=== PATIENT | male | born 1960 | race Caucasian/White ===

== ENCOUNTER 2016-05-09 21:19 | Inpatient (IN) | payer MEDICARE, OTHER ==
--- NOTE | ~2016-05-09 | DS ---
Discharge Summary [facility] [address] [place]. [address] NAME: AGUSTO FARAH : 58 STATUS : DIS IN PAT#: [id number] AGE: 56 ADM/REG DATE : 05/09/16 MR#: [id number] REPORT SERV DATE: 05/21/16 DICTATED BY: TEE MACDONALD DATE: 05/20/16 REPORT STATUS : Draft TRANSCRIBED BY: MODL DATE: 05/20/16 ADMISSION DATE: 05/09/2016 DISCHARGE DATE: 05/20/2016 REASON FOR ADMISSION: This is a 56-year-old male who was admitted with back pain, nauseation, and increased shortness of breath, known history of CKD stage 4. Also with a known history of cirrhosis with a recent paracentesis of 1.1 L prior to admission and a known history of CHF with an EF of 30% with recommendation for an AICD placement. HOSPITAL COURSE: Please see admission H and P from Dr. Reji Chapa on 05/10/2016 and interim discharge summary from Dr. Christian Saldivar on 05/17/2016, for full details on admission and hospital stay. DISCHARGE DIAGNOSES: 1. End-stage renal disease, on hemodialysis. 2. Nonalcoholic steatohepatitis cirrhosis. 3. Congestive heart failure with EF of 33%, status post AICD. 4. Diabetes type 2 with A1c of 6.3. 5. Anemia of chronic disease. HOSPITAL COURSE: 1. End-stage renal disease. The patient would ultimately have hemodialysis initiated here at the hospital and has been acquired end-stage renal and had a PermCath inserted on the and has been placed for outpatient dialysis on Tuesday, , Tuesday schedule at [facility]. The patient's last dialysis treatment was yesterday on the and his next will be on 05/22/2016. 2. RENAE cirrhosis. The patient with some noted ascites while here at the hospital with a known history of ascites with recent paracentesis prior to admission. There was some consideration for doing a paracentesis which was eventually ordered today before discharge. He was sent down to Interventional Radiology, but ultrasound revealed less than 1 L of fluid accumulation, not enough to pull, so the patient was sent back up to the floor. This will continue to be monitored. We will give the patient a torsemide 100 mg p.o. daily on his nondialysis days to help maintain this. 3. CHF with EF of 33%. The patient has been recommended by Dr. Esposito to have an AICD, but had been putting it off while he was here at the hospital. Dr. Esposito had the AICD placed on the . The patient's AICD is working properly and had no issues from it since placement. 4. Diabetes type 2. A1c of 6.3. Blood sugars well controlled here at the hospital. No changes to home regimen. DISCHARGE CONDITION: Stable. DISCHARGE MEDICATIONS: 1. Coreg 25 mg p.o. b.i.d. 2. Vitamin B12, 500 mcg p.o. daily. 3. NovoLog sliding scale. Discharge Summary [address] [address] NAME: AGUSTO FARAH : 58 STATUS : DIS IN PAT#: [id number] AGE: 56 ADM/REG DATE : 05/09/16 MR#: [id number] REPORT SERV DATE: 05/21/16 DICTATED BY: TEE MACDONALD DATE: 05/20/16 REPORT STATUS : Draft TRANSCRIBED BY: NATE DATE: 05/20/16 4. Valdez-3 fatty acid 1000 mg p.o. daily. 5. Zantac 150 mg p.o. daily. 6. Flomax 0.4 mg p.o. daily. 7. Demadex 100 mg p.o. on nondialysis days only. 8. Linzess 290 mcg p.o. daily. 9. Prinivil 2.5 mg p.o. daily. 10.Lactulose 10 g p.o. daily. DISCHARGE PLAN: The patient is discharged home with home healthcare. He is still significantly weak, did recommend inpatient rehab. I had a long discussion with the patient about going to rehab, but the patient and his adamantly refused saying they have all the equipment they need at home and she is capable of assisting him along with the help of home health care and PT. Therefore, he will be discharged home with home health care and RN and PT visits as well as follow up with [facility] on Tuesday for his next hemodialysis treatment. He will also follow up with primary care and renal outpatient. CHICO/NATE Tee Macdonald APN / [id number] CC: Estella Tejada M.D. Steven Austin, M.D., [facility] Jorge L eVntura M.D.
--- NOTE | ~2016-05-09 | CN ---
Consultation Report [address] [place]. [address] NAME: AGUSTO BUTT GENE : 58 STATUS : ADM IN PAT#: [id number] AGE: 56 ADM/REG DATE : 05/09/16 MR#: [id number] REPORT SERV DATE: 05/17/16 DICTATED BY: DANIEL BELTRAN DATE: 05/17/16 REPORT STATUS : Draft TRANSCRIBED BY: MODL DATE: 05/17/16 CONSULTATION DATE OF CONSULTATION: 05/17/2016 INDICATION: Device consideration. HISTORY OF PRESENT ILLNESS: Mr. Butt is a 56-year-old man with a long-standing ischemic cardiomyopathy of at least a couple years, who has been admitted for initiation of dialysis essentially. He was supposed to come see me in clinic on Tuesday for device consideration. He had refused an AICD in the past apparently, but is now agree. He is in the hospital now and is initiating dialysis. He has had no other acute problems. No recent myocardial infarction. No recent stenting. He states that he is chronically tired. He has not passed out recently. No palpitations. PAST MEDICAL HISTORY: 1. End-stage renal disease, now on hemodialysis. 2. Longstanding history of coronary artery disease with history of CABG remotely and PA remotely. 3. Congestive heart failure at least since May 2013 when ejection fraction was 33%. 4. Diabetes. 5. Hypertension. 6. History of DVT. 7. Arthritis. 8. Sleep apnea. 9. Peptic ulcer disease. SOCIAL HISTORY: He denies tobacco. FAMILY HISTORY: There is coronary artery disease in the family. HOME MEDICATIONS: 1. Coreg 12.5 mg b.i.d. 2. Insulin. 3. Linzess 290 mcg before breakfast. 4. Zantac 150 mg daily. 5. Flomax 0.4 mg daily. 6. Restoril 15 mg at bedtime. 7. Demadex 100 mg daily. ALLERGIES: HE IS ALLERGIC TO FLAGYL, VANCOMYCIN, HYDROCODONE. REVIEW OF SYSTEMS: A 10-system review was asked and is negative except for noted above in history of present Consultation Report [address] [place]. [address] NAME: AGUSTO BUTT GENE : 58 STATUS : ADM IN PAT#: [id number] AGE: 56 ADM/REG DATE : 05/09/16 MR#: [id number] REPORT SERV DATE: 05/17/16 DICTATED BY: DANIEL BELTRAN DATE: 05/17/16 REPORT STATUS : Draft TRANSCRIBED BY: NATE DATE: 05/17/16 illness. He has chronic fatigue. Some chronic shortness of breath. Weakness diffusely. No recent cold or flu symptoms. No recent significant chest pain. He has not passed out. He bruises. PHYSICAL EXAMINATION: VITAL SIGNS: He is afebrile. Temperature 88, systolic blood pressure 102. GENERAL: Mr. Butt is a chronically ill-appearing man, in no acute distress. He is alert and oriented to person and place. HEENT: Negative. He is not dehydrated. NECK: There is no obvious JVD. LUNGS: Have rhonchi bilaterally on an anterior exam. HEART: Tones are regular. A little ectopy. There is a murmur. ABDOMEN: Negative. He has good bowel sounds. EXTREMITIES: Show a little bit of edema. SKIN: Shows diffuse bruising. NEUROLOGIC: He moves all four extremities equally. He has normal speech. ELECTROCARDIOGRAM: This is from yesterday at about 2 in the morning and it shows atrial fibrillation with a rapid response around 110 beats per minute. Low voltage. The QRS axis appears to be normal. He has poor R-wave progression. There are diffuse ST changes. LABORATORY DATA: Sodium 141, potassium 3.9, BUN 90, creatinine 4. Platelet count 157, white blood cell count 6, hematocrit 30. IMPRESSION: Longstanding ischemic cardiomyopathy with history of coronary artery bypass graft and myocardial infarction. PLAN: I spoke with Mr. Butt regarding defibrillator placement. He seems to be an appropriate candidate. He is [place] [employer] II or III symptoms. He has been on maximally tolerated doses of GDMT. QRS duration is less than 120 milliseconds. This would be a dual-chamber device. Today, we have discussed indications, alternatives, all procedural details, and an extensive list of potential complications and risks. He will think about this overnight and let me know tomorrow. The options are to have this done while he is here in the next couple days or he is welcome to go home and have it done as an outpatient shortly. He wants to wait a long time, I would recommend a LifeVest. Thank you very much for the consultation. MARGO/NATE Daniel Beltran M.D. Consultation Report [place] [address] [address]. [address] NAME: AGUSTO BUTT : 58 STATUS : ADM IN PAT#: [id number] AGE: 56 ADM/REG DATE : 05/09/16 MR#: [id number] REPORT SERV DATE: 05/17/16 DICTATED BY: DANIEL BELTRAN DATE: 05/17/16 REPORT STATUS : Draft TRANSCRIBED BY: MODL DATE: 05/17/16 / [id number] CC: MD Dasha Heck M.D. Steven Austin, M.D., [facility]
--- NOTE | ~2016-05-09 | IDS ---
Interim Discharge Summary [facility] [address] [place]. [address] NAME: AGUSTO FARAH : 58 STATUS : ADM IN PAT#: [id number] AGE: 56 ADM/REG DATE : 05/09/16 MR#: [id number] REPORT SERV DATE: 05/17/16 DICTATED BY: YASMIN SALDIVAR DATE: 05/17/16 REPORT STATUS : Draft TRANSCRIBED BY: MODL DATE: 05/17/16 ADMISSION DATE: 05/09/2016 DISCHARGE DATE: REASON FOR ADMISSION: ALEJANDRA on CKD stage 4. HISTORY OF PRESENT ILLNESS: Please refer to Dr. Chapa's history and physical dated 05/09/2016 for complete details regarding the patient's admission. The patient has been at the Hospitalist Service for management of his ALEJANDRA on CKD stage 4. HOSPITAL COURSE: Several issues were addressed: 1. ALEJANDRA on CKD stage 4, now deemed end-stage renal disease, on hemodialysis. The patient was entered with an acute kidney injury and Nephrology was consulted. The patient continued to have some nausea, weakness, and increasing lower extremity edema. His creatinine had continued to rise. It was not sure if his nausea and vomiting were related to uremic syndrome as well as the BUN did get over 100, it was felt that the patient was not clinically improving and therefore initiating dialysis was the best plan of action. Dr. Lynn had initiated the patient on dialysis. He consulted Dr. Dyer for placement of a right internal jugular vein Perma-Cath, which was done on 05/13/2016. The patient the following day, had a short run of dialysis which he tolerated it okay, then another short run the following day. He is planning to run a full course of dialysis on Tuesday, and his creatinine and BUN continued to go down. His lower extremity edema is improving. The patient has been accepted to the [facility] for which his niece is the director at that facility, but we are currently awaiting a date and time for him to initiate dialysis at that outpatient center. Dr. Foster will follow as an outpatient. 2. Atrial fibrillation with RVR. The patient's heart rate has been well controlled up until approximately the night of 05/15/2016, where he went in to atrial fibrillation with RVR. He was started on a diltiazem drip with good heart rate control. His heart rate got below 100. Given his low ejection fraction, I have decided to discontinue his diltiazem drip and increases carvedilol, the dose went from 12.5 mg to 25 mg twice a day. He is tolerating the dose and so far his heart rate is between 90 and 100. Given his elevated score, he will need to be anticoagulated, however, given his cirrhosis, the last INR was 1.9 on 05/13/2016, without any anticoagulation. We will repeat some coags to see where we are and if he is not at goal two to three, we may need to consider starting him on Coumadin. However, this also we will need to address whether or not the patient will have an ICD placed on when to initiate Coumadin therapy if is needed to anticoagulate him. 3. Hinton/cirrhosis, the patient follows Dr. Ambrosio as an outpatient. His MELD has gone up to 25 on admission. We added lactulose and have been titrating lactulose levels down. He has had no sign of encephalopathy, secondary to his cirrhosis. Overall, the patient has a poor overall prognosis. 4. Chronic systolic heart failure with an EF of 20% to 30%, secondary to ischemic cardiomyopathy followed by Dr. Esposito. He has been compensated. He has been having a very difficult time with fluid balance given his chronic kidney disease, his heart failure, and cirrhosis, however, dialysis is managing that. As an outpatient Interim Discharge Summary [address] [address] NAME: AGUSTO FARAH : 58 STATUS : ADM IN [facility]#: [id number] AGE: 56 ADM/REG DATE : 05/09/16 MR#: [id number] REPORT SERV DATE: 05/17/16 DICTATED BY: YASMIN SALDIVAR DATE: 05/17/16 REPORT STATUS : Draft TRANSCRIBED BY: MODNoelle DATE: 05/17/16 Vaibhav used to schedule a paracentesis twice a week to be done by Interventional Radiology. He actually went down to Intervention Radiology to have paracentesis, but they discover that he did not have significant enough fluid and has not had a paracentesis in-house, it has been over two weeks since he has had one done. 5. Type 2 diabetes. It has been pretty stable. 6. BPH, been stable on Flomax. DISPOSITION: Eventually, discharge the patient home once outpatient HD has been completely arranged which should be done shortly, however, it is unclear to me as to the timing of an ICD placed per Dr. Esposito. Apparently, the patient has an upcoming appointment with Dr. Beltran as an outpatient to discuss an AICD placement, however, given the patient's overall multi-system organ dysfunction, I really do not believe that placing an ICD is going to increase this patient's quality of life and increase his mortality. However, that will be up to Dr. Esposito to decide, he was more familiar with the patient. The patient remains a full code. Hopefully, discharge to home sometime in the next day or two pending ICD placement. He is ambulating with his , I do not anticipate any further needs. MUNA/CALLIL Yasmin Saldivar MD / [id number] CC: MD Dasha Heck M.D. Dandre Foster M.D. Frank Esposito M.D., [facility]
--- NOTE | ~2016-05-09 | HP ---
History And Physical [address] [address] NAME: AGUSTO FARAH : 58 STATUS : ADM IN PAT#: [id number] AGE: 56 ADM/REG DATE : 05/09/16 MR#: [id number] REPORT SERV DATE: 05/10/16 DICTATED BY: ELIDIA BARRETT DATE: 05/09/16 REPORT STATUS : Draft TRANSCRIBED BY: MODL DATE: 05/09/16 DATE OF ADMISSION: 05/09/2016 CHIEF COMPLAINT: Back pain, nauseation, and increased shortness of breathing progressively. HISTORY OF PRESENT ILLNESS: The patient is a 56-year-old male with past medical history of diabetes, CHF followed by Dr. Esposito, CKD stage [address] Foster secondary to diabetes and IgA per records, and ascites followed by Dr. Treva Ambrosio, who has every other week paracentesis but family reports no history of HINTON cirrhosis, although records conflicting who presents after having abdominal and back pain that has been progressive continuous, constant oefmxfim-rx-[id number] in severity, that has been sharp radiating to back associated with nausea, shortness of breath. No vomiting. No fever or acute chills at this time. No swelling or redness but has had increased distention in the belly. Symptoms are worsened with palpation and relieved by only Dilaudid that was given in the emergency room. REVIEW OF SYSTEMS: A 10-point review of systems negative except for that noted in the HPI. PAST MEDICAL HISTORY: Coronary artery disease with CABG in 2000, CKD stage [address] 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 Esposito peripheral arterial disease, multiple stents placed by Dr. Beard, recent fistula placement with reversal after limb ischemia, is reported to have Hinton cirrhosis per charts but family denies this diagnosis. Obstructive sleep apnea on CPAP. Pulmonary hypertension with right ventricular dysfunction, hypertension, diabetes, cholelithiasis, peptic ulcer disease, diverticulosis, urinary retention followed by Dr. Vargas cellulitis. SURGICAL HISTORY: CABG in 2000, partial foot amputation, peripheral arterial disease, osteomyelitis, urethrotomy, pseudoaneurysm repair right forearm bone graft, congenital ear problems with multiple surgeries, vocal cord polyps. ALLERGIES: TO FLAGYL, ERYTHROMYCIN, AND VANCOMYCIN, ADHESIVE TAPE. SOCIAL HISTORY: , accompanied with from [place]. . No tobacco abuse, no alcohol use. FAMILY HISTORY: Diabetes, heart disease, stroke. PHYSICAL EXAMINATION: VITAL SIGNS: The patient's blood pressure 152/56, temperature 97.4, pulse 71, respirations 20, O2 sats 96%. GENERAL: Elderly frail but obese. EYES: No scleral icterus. ENT: Nares patent. Tongue midline. No JVD. RESPIRATORY: Good air flow. No wheezes or rales. History And Physical [address] [address] NAME: AGUSTO FARAH : 58 STATUS : ADM IN [facility]#: [id number] AGE: 56 ADM/REG DATE : 05/09/16 MR#: [id number] REPORT SERV DATE: 05/10/16 DICTATED BY: ELIDIA BARRETT DATE: 05/09/16 REPORT STATUS : Draft TRANSCRIBED BY: NATE DATE: 05/09/16 CV: Regular rate. No rubs. Does have bilateral edema. GI: Soft, but distended, positive fluid wave with ascites. Mild pain in posterior. No alycia CVA. : Deferred. MUSCULOSKELETAL: Moves all extremities x4 with bilateral lower extremity edema. Reverse shunt fistula. SKIN: Appears mildly jaundiced. LYMPH: No cervical or supraclavicular lymphadenopathy but does have pedal edema. HEME: No bleeding or bruising. NEURO: Alert and oriented. No asterixis. Moves all extremities. Sensation is still grossly intact. PSYCH: Appropriate mood and affect. After pain medications, calm and pleasant. LABS: Today urinalysis; large leukocyte esterase with greater than 182 white blood cells. CMP; sodium 139, potassium 4.6, chloride 100, bicarb 26, BUN creatinine 107 and 4.7, previously was 3.56 on 11/26/2014. Glucose 97, calcium 7.9, alkaline phosphatase 194, total bilirubin 1.1. LFTs within normal limits. Lipase 218. CBC: WBC count 4.7, H and H 10 and 33.6 previously 38 in April of 2015, MCV 72.4, platelets 177. EKG; none currently on chart. ASSESSMENT AND PLAN: 1. Acute kidney injury. 2. Urinary tract infection. 3. Congestive heart failure. 4. Microcytic anemia. 5. Ascites. 6. Diabetes type 2. PLAN: 1. For ALEJANDRA, does have CKD, unclear this is ESRD. Has had CKD secondary to diabetes and IgA. Fistula was placed but required reversal due to ischemia of limb. The patient has been on Demadex and did have recent 1.1 L paracentesis. We will obtain CT with the patient's back pain, concern for pyelo. We will start on an IV antibiotics with Rocephin for UTI and evaluate further with Nephrology. 2. Urinary tract infection. Rocephin. The patient has clinical symptoms of symptomatic UTI, unclear if has progression up to pyelonephritis. We will obtain imaging to further delineate and obtain cultures. 3. Congestive heart failure history. EF 30%. Followed by Dr. Esposito. No MONSERRAT inhibitors currently secondary to ALEJANDRA. Monitor fluid balance. 4. Microcytic anemia. Check iron studies with CKD history follows with Dr. Ruff. Family requesting Dr. Ruff consult with anemia and ascites. 5. Ascites, recent paracentesis, typically should have paracentesis this week as he does have paracentesis every 2 weeks. Family again declines. The patient has history of HINTON cirrhosis, as noted in prior dictations. 6. Diabetes type 2. Sliding scale insulin. Check A1c. History And Physical [address] [address] NAME: AGUSTO FARAH : 58 STATUS : ADM IN [facility]#: [id number] AGE: 56 ADM/REG DATE : 05/09/16 MR#: [id number] REPORT SERV DATE: 05/10/16 DICTATED BY: ELIDIA BARRETT DATE: 05/09/16 REPORT STATUS : Draft TRANSCRIBED BY: MODL DATE: 05/09/16 DISPOSITION: Pending findings from above and Nephrology or GI consultation. DDN/MODL Elidia Barrett MD / [id number] CC: Estella Powers Boeck, M.D.
--- NOTE | ~2016-05-09 | CN ---
Consultation Report [facility] [address] [place]. [address] NAME: AGUSTO BUTT : 58 STATUS : ADM IN PAT#: [id number] AGE: 56 ADM/REG DATE : 05/09/16 MR#: [id number] REPORT SERV DATE: 05/10/16 DICTATED BY: HOLLY REES DATE: 05/10/16 REPORT STATUS : Draft TRANSCRIBED BY: MODL DATE: 05/10/16 GI CONSULTATION DATE OF CONSULTATION: 05/10/2016 REASON FOR CONSULTATION: Cirrhosis and ascites. HISTORY OF PRESENT ILLNESS: Mr. Butt is a 56-year-old white male who had been followed in our GI Clinic for his history of RENAE cirrhosis, which has been complicated by ascites. He has not been seen in our clinic since 04/2014, at which time, he was both on Lasix and Aldactone. 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 He has history of CHF diagnosed by Dr. Esposito with an ejection fraction of less than 30%; coronary artery disease, status post CABG 2000. PAST MEDICAL HISTORY: Chronic kidney disease, stage 4; RENAE cirrhosis; peripheral arterial disease, status post multiple stents; obstructive sleep apnea, on CPAP; hypertension. PAST SURGICAL HISTORY: Partial foot amputation; ear surgeries; pseudoaneurysm, right forearm. SOCIAL HISTORY: No smoking, alcohol, or drug use. FAMILY HISTORY: Diabetes, stroke, coronary artery disease. MEDICATIONS: Reviewed. ALLERGIES: REVIEWED. PHYSICAL EXAMINATION: VITAL SIGNS: Patient is afebrile. His vital signs are stable. GENERAL: The patient is a chronically ill-appearing gentleman, who appears gaunt and chronically ill. HEENT: Atraumatic. Bitemporal wasting. CARDIAC: S1, S2. CHEST: Decreased breath sounds bilaterally. ABDOMEN: Distended and firm, but not tense with fluid wave easily elicited. LABORATORY DATA: Show WBC 4.3, hemoglobin 9.9, hematocrit 33.3, platelets 168. INR is 1.5. Sodium 137, potassium 4.8, chloride 102, bicarb 20, BUN 107, creatinine 4.5, glucose 175, bilirubin 4.1, AST 17, ALT 28, alkaline phosphatase was 68. MELD score previously calculated to be 19, but this appears to be driven mostly by his creatinine, but his INR also is elevated bringing up his MELD score, which on this admission today is calculated to be 25, which is a significant increase from his score from two years ago. Consultation Report [place] [id number] [place]. [address] NAME: AGUSTO BUTT : 58 STATUS : ADM IN PAT#: [id number] AGE: 56 ADM/REG DATE : 05/09/16 MR#: [id number] REPORT SERV DATE: 05/10/16 DICTATED BY: HOLLY REES DATE: 05/10/16 REPORT STATUS : Draft TRANSCRIBED BY: MODNoelle DATE: 05/10/16 He is a very difficult patient with regard to his fluid status given his history of CHF and chronic kidney disease, stage 4, with underlying RENAE cirrhosis. No evidence of SBP or any overt GI bleeding at this time. I have discussed the gravity of the patient's chronic health care and the difficulty with maintaining optimal hemodynamic status with him as well as with his . We will follow up on Cardiology and Nephrology's recommendations. He does need diuresis, however, given his other comorbidities, this remains a challenge and will continue to follow with you. ARCHANA/NATE Holly Rees MD / [id number] CC: Estella Powers M.D.
--- NOTE | ~2016-05-09 | CN ---
Consultation Report [facility] [address] [place]. [address] NAME: AGUSTO BUTT GENE : 58 STATUS : ADM IN PAT#: [id number] AGE: 56 ADM/REG DATE : 05/09/16 MR#: [id number] REPORT SERV DATE: 05/12/16 DICTATED BY: FRANK NUNN DATE: 05/12/16 REPORT STATUS : Draft TRANSCRIBED BY: MODL DATE: 05/12/16 CARDIOVASCULAR CONSULTATION DATE OF CONSULTATION: 05/11/2016 REFERRING PHYSICIAN: Christian Saldivar M.D. HISTORY OF PRESENT ILLNESS: Mr. Agusto Butt is a 56-year-old gentleman who I followed for congestive heart failure, edema, and recurrent ascites, felt secondary to the comorbidities of CHF, RENAE, and renal insufficiency. He requires paracentesis once or twice monthly secondary to the recurrent ascites. He was admitted on 05/10/2016, complaining of back pain, nausea, and increasing shortness of breath. He reports that he had been somewhat constipated as well. He was found to have acute renal insufficiency, as well as a urinary tract infection. REVIEW OF SYSTEMS: The patient reports stable orthopnea. He denies any paroxysmal nocturnal dyspnea. He denies any chest pain. He denies any syncope or presyncope. PAST MEDICAL HISTORY: Noted above, significant for heart failure with reduced ejection fraction. He is currently undergoing an evaluation by Dr. Wolf Beltran for AICD. He has history of coronary artery disease, diabetes mellitus type 2, hypertension, peripheral vascular disease, and DVT. He is status post remote bypass. His last known ejection fraction is 20-25%. MEDICATIONS: See list. FAMILY HISTORY: Positive for coronary artery disease. SOCIAL HISTORY: The patient has never smoked or used ethanol. ALLERGIES: THE PATIENT REPORTS ALLERGIES TO ERYTHROMYCIN, FLAGYL, AND VANCOMYCIN. PHYSICAL EXAMINATION: VITAL SIGNS: Blood pressure 129/70, pulse 66, respiratory rate 16. The patient is afebrile. GENERAL: This is a well-developed, well-nourished, chronically ill-appearing 56-year-old white male, alert, and oriented x3, in no acute distress. NECK: No jugular venous distention, hepatojugular reflux, or carotid bruits. CARDIOVASCULAR: Normal rate with regular rhythm. Positive S4 gallop. LUNGS: Clear to auscultation. However, breath sounds are diminished in the bases and excursion is fair. ABDOMINAL: Reveals ascites. EXTREMITY: Reveals 1 to 2+ pitting edema with chronic venous stasis changes noted. Consultation Report [facility] [id number] [place]. [address] NAME: AGUSTO BUTT : 58 STATUS : ADM IN PAT#: [id number] AGE: 56 ADM/REG DATE : 05/09/16 MR#: [id number] REPORT SERV DATE: 05/12/16 DICTATED BY: FRANK NUNN DATE: 05/12/16 REPORT STATUS : Draft TRANSCRIBED BY: MODL DATE: 05/12/16 Telemetry shows sinus rhythm. LABORATORY DATA: Significant for hematocrit of 33.2. BUN and creatinine are elevated at 124 and 4.9. ASSESSMENT: 1. Acute kidney injury on chronic kidney disease. 2. Urinary tract infection. 3. Heart failure with reduced ejection fraction. 4. Nonalcoholic steatohepatitis. 5. Diabetes mellitus type 2. 6. Ascites. 7. Anemia. 8. History of coronary artery disease. PLAN: 1. Agree with current treatment. He will likely, at some point, need hemodialysis. This would also help with his chronic ascites. 2. Agree with current treatment. I appreciate your consultation. We will follow this patient with you. PAIGE Frank Nunn M.D., [facility] / [id number] CC: MD Dasha Heck M.D.
--- NOTE | ~2016-05-09 | OP ---
Record Of Operation [facility] [address] [place]. [address] NAME: AGUSTO FARAH : 58 STATUS : ADM IN PAT#: [id number] AGE: 56 ADM/REG DATE : 05/09/16 MR#: [id number] REPORT SERV DATE: 05/13/16 DICTATED BY: WASHINGTON DYER JR. DATE: 05/13/16 REPORT STATUS : Draft TRANSCRIBED BY: MODL DATE: 05/13/16 DATE OF PROCEDURE: 05/13/2016 PREOPERATIVE DIAGNOSIS: End-stage renal disease. POSTOPERATIVE DIAGNOSIS: End-stage renal disease. OPERATION: Insertion of right internal jugular vein PermCath catheter. SURGEON: Washington Dyer M.D. HISTORY: This is a 56-year-old, white male, who has not started dialysis yet. He is in need of urgent dialysis. PROCEDURE IN DETAIL: The patient was placed on the operating table. The right side of the neck was prepped and draped in the usual sterile manner. A long needle was used to find the right internal jugular vein. A wire was placed down the right side of the heart. This was confirmed with fluoroscopy. PermCath catheter was brought through the stab wound below the right clavicle, up into the small neck incision, and down into the Tear-Away introducer. The catheter was then irrigated with heparinized saline and sutured into place. The patient tolerated the procedure well. Taken back to recovery room in fair condition. There were no intraoperative complications. ESTIMATED BLOOD LOSS: Negligible. DF/MODL Washington Dyer Jr., M.D. / [id number] CC: MD Dasha Heck M.D.
--- NOTE | ~2016-05-09 | CN ---
Consultation Report [facility] [address] [place]. [address] NAME: AGUSTO BUTT : 58 STATUS : ADM IN PAT#: [id number] AGE: 56 ADM/REG DATE : 05/09/16 MR#: [id number] REPORT SERV DATE: 05/10/16 DICTATED BY: DATE: REPORT STATUS : Draft TRANSCRIBED BY: MODL DATE: 05/10/16 CONSULTATION DATE OF CONSULTATION: REASON FOR CONSULTATION: Acute kidney injury. HISTORY OF PRESENT ILLNESS: Mr. Butt is a 56-year-old white male with CKD stage 4 in the setting of diabetic nephropathy. He also had some findings consistent with IgA on a biopsy that was performed in the past. He has ischemic cardiomyopathy with previous EFs of 20 to 25, refused AICD, last recording I see is an EF of 30. He presented to the hospital with abdominal pain, nausea, vomiting, feeling poorly and was found to have findings consistent with urinary tract infection. Creatinine up to 4.7, today it is down to 4.5. He states he is feeling somewhat better. He has recurrent ascites, which sounds to be related to his congestion, as he has had full workup by Dr. Ambrosio and been told he does not have cirrhosis. He is experiencing right now no shortness of breath, but he is having some oxygen desaturations. No difficulty with urination. PAST MEDICAL HISTORY: CKD secondary to diabetes, ischemic cardiomyopathy, peripheral artery disease, multiple stents, left foot partial amputation, osteomyelitis, obstructive sleep apnea, hepatomegaly, pulmonary hypertension, diabetes, peptic ulcer disease, gastritis, gastric telangiectasias, diverticulitis, urinary retention, cellulitis. FAMILY MEDICAL HISTORY: Positive for end-stage renal disease in niece. SOCIAL HISTORY: He is . 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 No tobacco, alcohol, or illicit drug use. ALLERGIES: FLAGYL, ERYTHROMYCIN, AND VANCOMYCIN. MEDICATIONS: At the time of consultation, Coreg, Rocephin, famotidine, heparin, insulin, sodium bicarbonate, tamsulosin, and temazepam. His Demadex is being held. REVIEW OF SYSTEMS: A 12-point review of systems was obtained and negative with the exception of that in the HPI. PHYSICAL EXAMINATION: VITAL SIGNS: Temperature 97.1, blood pressure 120/66, pulse 62, respiratory rate 18, O2 saturation is 98%. GENERAL: This is a pleasant, cooperative, chronically ill-appearing white male. He is awake, alert and oriented x3, in no acute distress. Answers questions appropriately. HEENT: Normocephalic and atraumatic. Conjunctivae clear. Sclerae anicteric. Pupils are equal and round. Oral mucosa is moist. Consultation Report [facility] [address] [address] NAME: AGUSTO BUTT : 58 STATUS : ADM IN PAT#: [id number] AGE: 56 ADM/REG DATE : 05/09/16 MR#: [id number] REPORT SERV DATE: 05/10/16 DICTATED BY: DATE: REPORT STATUS : Draft TRANSCRIBED BY: MODL DATE: 05/10/16 NECK: Supple. Carotids are brisk. Neck veins flat. No lymphadenopathy. LUNGS: Respirations are even and unlabored. Breath sounds clear to auscultation. HEART: Rate is regular. No murmur, rub, or gallop. ABDOMEN: Distended with ascites and soft. He has no CVA tenderness. EXTREMITIES: With 2+ pitting edema. SKIN: Warm, dry, and intact. No unusual rashes or skin lesions. NEURO: No focal deficits. Generalized weakness positive. Mood and affect, pleasant and appropriate. PERTINENT LABORATORIES AND X-RAYS: His urinalysis had rare bacteria, but had white blood cell clumps in it and 14 red blood cells per high-power field and nitrite negative. WBCs 4, H and H 9 and 29, platelets 168,000. Lactate 0.8. Sodium 137, potassium 4.8, chloride 102, CO2 of 20, BUN of 107, creatinine of 4.5, calcium of 8, albumin of 3, bilirubin 1.4, alkaline phosphatase 168, SGOT of 17, SGPT of 28. Ferritin of 44 with serum iron of 25. TSH 2.7. Ammonia level 53. A1c of 6.3. IMPRESSION: 1. Acute kidney injury on chronic kidney disease stage 4. 2. History of steal syndrome to left AV fistula, status post ligation. 3. Urinary tract infection. 4. Nausea and vomiting. 5. Ischemic cardiomyopathy with EF of 30. 6. Hepatomegaly, no cirrhosis per Dr. Ambrosio, requires q.2 weeks' paracentesis for recurrent ascites. PLAN: Agree with holding Demadex and increasing p.o. intake and if he needs it, some cautious IV hydration would be okay, but given his low EF, I am reluctant to do that at this point as his nausea is better. We will follow I's and O's and labs. No indication for renal replacement therapy today. However, we will follow labs over the next 24-48 hours. If no improvement, I will need to consider initiation of dialysis and have discussed this with family. Further orders and recommendations pending clinical course. Thank you for the consult. We will follow along with you. FRED/NATE JIN Urena / [id number] CC: April Cardona M.D. Consultation Report [address] [address] NAME: AGUSTO BUTT GENE : 58 STATUS : ADM IN PAT#: [id number] AGE: 56 ADM/REG DATE : 05/09/16 MR#: [id number] REPORT SERV DATE: 05/10/16 DICTATED BY: DATE: REPORT STATUS : Draft TRANSCRIBED BY: NATE DATE: 05/10/16 Dasha Chaney M.D.
[2016-05-09 19:24] LABS: ASCORBIC ACID (UR NOT ORDER) NEG (NEG); BILIRUBIN, URINE NEGATIVE (NEG); ER URINALYSIS TAT 0 Hrs 08 Mins; KETONE, URINE NEGATIVE (NEG); LEUKOCYTE ESTERASE(NOT OR LARGE (NEG); NITRITE (URINE) NEG (NEG); WBC (NOT ORDERED) (RFLEX) > 182 (0-5)
[2016-05-09 19:48] LABS: BASOPHILS 0.6 %; BASOPHILS ABSOLUTE 0.03 10/3/uL (0.0-0.16); EOSINOPHILS 7.6 %; EOSINOPHILS ABSOLUTE 0.36 10/3/uL (0.0-0.53); IMMATURE GRANULOCYTES 0.2 %; IMMATURE GRANULOCYTES ABSOLUTE 0.01 10/3/uL (0.0-0.11); LYMPHOCYTES 16.8 %; LYMPHOCYTES ABSOLUTE 0.79 10/3/uL (0.67-4.30); MEAN CORPUS HGB CONC 29.8 g/dL (32.0-36.0); MEAN PLATELET VOLUME 8.6 fL (9.2-13.0); MONOCYTES 3.4 %; MONOCYTES ABSOLUTE 0.16 10/3/uL (0.21-1.20); NEUTROPHILS 71.4 %; NEUTROPHILS ABSOLUTE 3.36 10/3/uL (2.02-8.40); PLATELET COUNT 177 10/3/uL (150-400); RBC DISTRIBUTION WIDTH 20.5 % (12.0-16.0); RED CELL COUNT 4.64 10/6/uL (4.7-6.1); WHITE BLOOD CELLS 4.7 10/3/uL (4.5-10.5)
[2016-05-09 19:54] LABS: HEMATOCRIT 33.6 % (40.0-51.0); MANUAL DIFF NO %; MEAN CORPUSCULAR HEMOGLOB 21.6 pg (26.0-34.0); MEAN CORPUSCULAR VOLUME 72.4 fL (80-100)
[2016-05-09 20:03] LABS: ALBUMIN 3.2 G/DL (3.5-5.0); CALCIUM, SERUM 7.9 MG/DL (8.5-10.4); POTASSIUM, SERUM 4.6 MMOL/L (3.5-5.3); SGOT(AST) 18 U/L (5-40); SGPT(ALT) 31 U/L (5-65); SODIUM, SERUM 139 MMOL/L (135-148); TOTAL BILIRUBIN 1.1 MG/DL (0-1.2)
[2016-05-09 20:04] LABS: A/G RATIO 0.7 (0.7-1.9); ALKALINE PHOSPHATASE 194 U/L (45-117); BUN (BLOOD UREA NITROGEN) 107 MG/DL (6-23); CHLORIDE, SERUM 100 MMOL/L (96-112); CO2 (CARBON DIOXIDE) 26 MMOL/L (24-34); GFR AFRICAN AMERICAN 15 ML/MIN (>=60); GFR NON AFRICAN AMERICAN 13 ML/MIN (>=60); GLOBULIN 4.8 G/DL (2.5-4.1); GLUCOSE, SERUM 97 MG/DL (60-99)
[2016-05-09 20:18] LABS: ANISOCYTOSIS 1+ (5-10/OIF) (0-5/OIF); MICROCYTES 1+ (5-10/OIF) (0-5/OIF)
[2016-05-09 20:19] LABS: PLATELET ESTIMATE ADQ (ADEQUATE)
[~2016-05-09 21:19] MED LIST: ADVIL PO; ASAB PO; B12250T PO; CINNAMON PO; CINNAMONPO PO; CIP5 PO; COQ10100 MG OR; COREG12 PO; COREG6 PO; CRESTOR5 MG PO; DEMA100 PO; EZFE 200200 MG PO; FERROUS SULF325 M1 PO; FISH OIL PO; FISH OIL300 MG PO; FISH-EPA1000 MG PO; FLOMAX4 PO; FOLIC ACID PO; GARACR15 TOP; HUMALOG SC; L40 PO; L80 PO; LAN25 PO; LANTUS SC; LINZESS 145 M145 MCG PO; LORT7 PO; LOTE20 PO; LOVENOX SC; MEVACOR PO; MIRALAXPKT PO; MULTIPLE VIT PO; MULTIVIT/MIN PO; MULTIVITAMIN PO; NEUR300 PO; NORCO1 TA2 PO; NORCO1 TAB PO; NOVOLOG SC; NOVOPEN SC; PLAVIX PO; PROTONIX PO; RAPAFLO8 MG PO; REST15 PO; ROCALTROL0.25 MCG OR; ROCALTROL0.5 MCG OR; SEPTRA DS1 TAB PO; SODBICAR10 PO; SPIRO25 PO; SPIRO50 PO; TRIPLE OMEGA PO; TUMSROLL PO; VITAMIN A TOP; VITAMIN D PO; VITC500 PO; Z-PAK PO; ZANTAC 150 PO; ZAROX2.5B PO; [UNRECOGNIZED DRUG - OTHER] TOP
[2016-05-09] MEDS ORDERED: B12250T PO (21:52)
[2016-05-09] MEDS ORDERED: COREG25 PO (21:52)
[2016-05-09] MEDS ORDERED: FISH-EPA1000 MG PO (21:53)
[2016-05-09] MEDS ORDERED: FLOMAX4 PO (21:53)
[2016-05-09] MEDS ORDERED: NOVOLOG SC (21:53)
[2016-05-09] MEDS ORDERED: SODBICAR10 PO (21:53)
[2016-05-09] MEDS ORDERED: ZANTAC 150 PO (21:53)
[2016-05-09] MEDS ORDERED: DEMA100 PO (21:54)
[2016-05-09] MEDS ORDERED: REST15 PO (21:54)
[2016-05-09] MEDS ORDERED: LINZESS 290 M290 MCG PO (21:54)
[2016-05-10 07:16] LABS: BASOPHILS 0.2 %; BASOPHILS ABSOLUTE 0.01 10/3/uL (0.0-0.16); EOSINOPHILS 0.2 %; EOSINOPHILS ABSOLUTE 0.01 10/3/uL (0.0-0.53); HEMATOCRIT 33.3 % (40.0-51.0); HEMOGLOBIN 9.9 g/dL (13.6-17.8); IMMATURE GRANULOCYTES 0.7 %; IMMATURE GRANULOCYTES ABSOLUTE 0.03 10/3/uL (0.0-0.11); LYMPHOCYTES 6.3 %; LYMPHOCYTES ABSOLUTE 0.27 10/3/uL (0.67-4.30); MEAN CORPUS HGB CONC 29.7 g/dL (32.0-36.0); MEAN CORPUSCULAR HEMOGLOB 21.6 pg (26.0-34.0); MEAN CORPUSCULAR VOLUME 72.5 fL (80-100); MEAN PLATELET VOLUME 8.9 fL (9.2-13.0); MONOCYTES 2.1 %; MONOCYTES ABSOLUTE 0.09 10/3/uL (0.21-1.20); NEUTROPHILS 90.5 %; PLATELET COUNT 168 10/3/uL (150-400); RBC DISTRIBUTION WIDTH 20.7 % (12.0-16.0); RED CELL COUNT 4.59 10/6/uL (4.7-6.1); WHITE BLOOD CELLS 4.3 10/3/uL (4.5-10.5)
[2016-05-10 07:18] LABS: MANUAL DIFF NO %
[2016-05-10 07:36] LABS: ANISOCYTOSIS 1+ (5-10/OIF) (0-5/OIF); ELLIPTOCYTES 1+ (3-10/OIF) (0-2/OIF); PLATELET ESTIMATE ADQ (ADEQUATE); TARGET CELLS OCC (1-2/OIF) (0-1/OIF)
[2016-05-10 07:40] LABS: A/G RATIO 0.6 (0.7-1.9); CHLORIDE, SERUM 102 MMOL/L (96-112); CREATININE 4.51 MG/DL (0.70-1.30); FERRITIN 44 NG/ML (26-388); GFR AFRICAN AMERICAN 16 ML/MIN (>=60); GFR NON AFRICAN AMERICAN 13 ML/MIN (>=60); GLOBULIN 4.7 G/DL (2.5-4.1); IRON BINDING CAPACITY 321 MCG/DL (250-450); IRON, SERUM 25 MCG/DL (35-150); POTASSIUM, SERUM 4.8 MMOL/L (3.5-5.3); SGOT(AST) 17 U/L (5-40); SGPT(ALT) 28 U/L (5-65); SODIUM, SERUM 137 MMOL/L (135-148); TOTAL BILIRUBIN 1.4 MG/DL (0-1.2); TOTAL PROTEIN 7.7 G/DL (6.0-8.5)
[2016-05-10 07:43] LABS: ALKALINE PHOSPHATASE 168 U/L (45-117); BUN (BLOOD UREA NITROGEN) 107 MG/DL (6-23); CO2 (CARBON DIOXIDE) 20 MMOL/L (24-34); GLUCOSE, SERUM 175 MG/DL (60-99)
[2016-05-10 08:06] LABS: PROCALCITONIN 0.23 ng/mL (<0.5)
[2016-05-10 09:11] LABS: GLYCOHEMOGLOBIN (HbA1c) 6.3 % (4.7-6.1)
[2016-05-11 07:04] LABS: BASOPHILS 0.1 %; BASOPHILS ABSOLUTE 0.01 10/3/uL (0.0-0.16); EOSINOPHILS 0.1 %; EOSINOPHILS ABSOLUTE 0.01 10/3/uL (0.0-0.53); HEMATOCRIT 33.2 % (40.0-51.0); HEMOGLOBIN 9.9 g/dL (13.6-17.8); IMMATURE GRANULOCYTES 0.3 %; IMMATURE GRANULOCYTES ABSOLUTE 0.03 10/3/uL (0.0-0.11); LYMPHOCYTES 8.6 %; LYMPHOCYTES ABSOLUTE 0.87 10/3/uL (0.67-4.30); MANUAL DIFF NO %; MEAN CORPUS HGB CONC 29.8 g/dL (32.0-36.0); MEAN CORPUSCULAR HEMOGLOB 21.4 pg (26.0-34.0); MEAN CORPUSCULAR VOLUME 71.7 fL (80-100); MEAN PLATELET VOLUME 9.3 fL (9.2-13.0); MONOCYTES 4.5 %; MONOCYTES ABSOLUTE 0.46 10/3/uL (0.21-1.20); NEUTROPHILS 86.4 %; NEUTROPHILS ABSOLUTE 8.78 10/3/uL (2.02-8.40); PLATELET COUNT 205 10/3/uL (150-400); RBC DISTRIBUTION WIDTH 20.9 % (12.0-16.0); RED CELL COUNT 4.63 10/6/uL (4.7-6.1); WHITE BLOOD CELLS 10.2 10/3/uL (4.5-10.5)
[2016-05-11 07:33] LABS: ALBUMIN 3.3 G/DL (3.5-5.0); CALCIUM, SERUM 7.9 MG/DL (8.5-10.4); CHLORIDE, SERUM 101 MMOL/L (96-112); CO2 (CARBON DIOXIDE) 22 MMOL/L (24-34); GFR AFRICAN AMERICAN 14 ML/MIN (>=60); GFR NON AFRICAN AMERICAN 12 ML/MIN (>=60); POTASSIUM, SERUM 5.5 MMOL/L (3.5-5.3); SODIUM, SERUM 136 MMOL/L (135-148)
[2016-05-11 07:34] LABS: BUN (BLOOD UREA NITROGEN) 124 MG/DL (6-23); GLUCOSE, SERUM 235 MG/DL (60-99); PHOSPHORUS, SERUM 6.8 MG/DL (2.5-4.5)
[2016-05-11 07:37] LABS: ANISOCYTOSIS 1+ (5-10/OIF) (0-5/OIF); PLATELET ESTIMATE ADQ (ADEQUATE)
[2016-05-11 07:38] LABS: POLYCHROMASIA 1+ (2-5/OIF) (0-1/OIF)
[2016-05-11 17:51] LABS: ASCORBIC ACID (UR NOT ORDER) NEG (NEG); BILIRUBIN, URINE NEGATIVE (NEG); KETONE, URINE NEGATIVE (NEG); LEUKOCYTE ESTERASE(NOT OR LARGE (NEG); WBC (NOT ORDERED) (RFLEX) > 182 (0-5)
[2016-05-11 18:16] LABS: CREATININE (RANDOM URINE) 83.3 MG/DL; CREATININE, URINE 83.3 MG/DL; MICROALBUMIN, RANDOM URINE 23.4 MG/DL
[2016-05-12 06:17] LABS: BASOPHILS 0.2 %; BASOPHILS ABSOLUTE 0.01 10/3/uL (0.0-0.16); EOSINOPHILS 0.7 %; EOSINOPHILS ABSOLUTE 0.04 10/3/uL (0.0-0.53); HEMOGLOBIN 9.8 g/dL (13.6-17.8); IMMATURE GRANULOCYTES 0.3 %; IMMATURE GRANULOCYTES ABSOLUTE 0.02 10/3/uL (0.0-0.11); LYMPHOCYTES 8.6 %; LYMPHOCYTES ABSOLUTE 0.52 10/3/uL (0.67-4.30); MANUAL DIFF NO %; MEAN CORPUS HGB CONC 29.7 g/dL (32.0-36.0); MEAN CORPUSCULAR HEMOGLOB 21.4 pg (26.0-34.0); MEAN CORPUSCULAR VOLUME 72.1 fL (80-100); MEAN PLATELET VOLUME 9.4 fL (9.2-13.0); MONOCYTES 8.3 %; NEUTROPHILS 81.9 %; NEUTROPHILS ABSOLUTE 4.95 10/3/uL (2.02-8.40); PLATELET COUNT 175 10/3/uL (150-400); RBC DISTRIBUTION WIDTH 20.4 % (12.0-16.0); RED CELL COUNT 4.58 10/6/uL (4.7-6.1)
[2016-05-12 06:21] LABS: INTERNATIONAL NORMAL RATI 1.9 UNITS (-)
[2016-05-12 06:34] LABS: CALCIUM, SERUM 7.5 MG/DL (8.5-10.4); CHLORIDE, SERUM 99 MMOL/L (96-112); CO2 (CARBON DIOXIDE) 20 MMOL/L (24-34); CREATININE 4.97 MG/DL (0.70-1.30); GFR AFRICAN AMERICAN 14 ML/MIN (>=60); GFR NON AFRICAN AMERICAN 12 ML/MIN (>=60); SODIUM, SERUM 136 MMOL/L (135-148)
[2016-05-12 06:38] LABS: BUN (BLOOD UREA NITROGEN) 133 MG/DL (6-23); GLUCOSE, SERUM 143 MG/DL (60-99)
[2016-05-12 06:59] LABS: ANISOCYTOSIS 1+ (5-10/OIF) (0-5/OIF); PLATELET ESTIMATE ADQ (ADEQUATE)
[2016-05-12 11:11] LABS: HEPATITIS B SURFACE ANTIGEN NON-REACTIVE (NON-REACT)
[2016-05-12 11:29] LABS: HEPATITIS B CORE AB IGM NON-REACTIVE (NON-REAC); HEPATITIS C ANTIBODY NON-REACTIVE (NON-REACT)
[2016-05-12 11:31] LABS: HEP A ANTIBODY IGM NON-REACTIVE (NON-REACT)
[2016-05-13 06:32] LABS: INTERNATIONAL NORMAL RATI 1.9 UNITS (-); PARTIAL THROMBO TIME 33.2 SEC (22.5-37.2); PROTIME (NOT ORD) 21.5 SEC (12.0-14.5)
[2016-05-13 06:43] LABS: CALCIUM, SERUM 7.6 MG/DL (8.5-10.4); CHLORIDE, SERUM 100 MMOL/L (96-112); CO2 (CARBON DIOXIDE) 19 MMOL/L (24-34); CREATININE 5.26 MG/DL (0.70-1.30); GFR AFRICAN AMERICAN 13 ML/MIN (>=60); GFR NON AFRICAN AMERICAN 11 ML/MIN (>=60); GLUCOSE, SERUM 126 MG/DL (60-99); PHOSPHORUS, SERUM 5.9 MG/DL (2.5-4.5); POTASSIUM, SERUM 4.7 MMOL/L (3.5-5.3); SODIUM, SERUM 134 MMOL/L (135-148); TOTAL PROTEIN 7.2 G/DL (6.0-8.5)
[2016-05-13 06:44] LABS: BUN (BLOOD UREA NITROGEN) 139 MG/DL (6-23)
[2016-05-13 06:51] LABS: BASOPHILS 0.4 %; BASOPHILS ABSOLUTE 0.03 10/3/uL (0.0-0.16); EOSINOPHILS 3.5 %; EOSINOPHILS ABSOLUTE 0.24 10/3/uL (0.0-0.53); HEMATOCRIT 32.1 % (40.0-51.0); HEMOGLOBIN 9.6 g/dL (13.6-17.8); IMMATURE GRANULOCYTES 0.3 %; IMMATURE GRANULOCYTES ABSOLUTE 0.02 10/3/uL (0.0-0.11); LYMPHOCYTES 12.5 %; LYMPHOCYTES ABSOLUTE 0.85 10/3/uL (0.67-4.30); MEAN CORPUS HGB CONC 29.9 g/dL (32.0-36.0); MEAN CORPUSCULAR HEMOGLOB 21.5 pg (26.0-34.0); MEAN PLATELET VOLUME 9.5 fL (9.2-13.0); MONOCYTES 5.7 %; MONOCYTES ABSOLUTE 0.39 10/3/uL (0.21-1.20); NEUTROPHILS 77.6 %; NEUTROPHILS ABSOLUTE 5.29 10/3/uL (2.02-8.40); PLATELET COUNT 168 10/3/uL (150-400); RBC DISTRIBUTION WIDTH 20.8 % (12.0-16.0); RED CELL COUNT 4.46 10/6/uL (4.7-6.1); WHITE BLOOD CELLS 6.8 10/3/uL (4.5-10.5)
[2016-05-13 06:54] LABS: MANUAL DIFF NO %
[2016-05-13 07:41] LABS: ANISOCYTOSIS 1+ (5-10/OIF) (0-5/OIF); MACROCYTES 1+ (5-10/OIF) (0-5/OIF); PLATELET ESTIMATE ADQ (ADEQUATE); POLYCHROMASIA 1+ (2-5/OIF) (0-1/OIF)
[2016-05-13 07:42] LABS: MICROCYTES 1+ (5-10/OIF) (0-5/OIF)
[2016-05-14 06:38] LABS: BASOPHILS 0.5 %; BASOPHILS ABSOLUTE 0.03 10/3/uL (0.0-0.16); EOSINOPHILS 2.7 %; EOSINOPHILS ABSOLUTE 0.17 10/3/uL (0.0-0.53); HEMATOCRIT 33.2 % (40.0-51.0); IMMATURE GRANULOCYTES 0.5 %; IMMATURE GRANULOCYTES ABSOLUTE 0.03 10/3/uL (0.0-0.11); LYMPHOCYTES 8.4 %; LYMPHOCYTES ABSOLUTE 0.52 10/3/uL (0.67-4.30); MEAN CORPUS HGB CONC 30.1 g/dL (32.0-36.0); MEAN CORPUSCULAR HEMOGLOB 21.5 pg (26.0-34.0); MEAN CORPUSCULAR VOLUME 71.4 fL (80-100); MEAN PLATELET VOLUME 9.1 fL (9.2-13.0); MONOCYTES 3.9 %; MONOCYTES ABSOLUTE 0.24 10/3/uL (0.21-1.20); PLATELET COUNT 164 10/3/uL (150-400); RBC DISTRIBUTION WIDTH 20.9 % (12.0-16.0); RED CELL COUNT 4.65 10/6/uL (4.7-6.1); WHITE BLOOD CELLS 6.2 10/3/uL (4.5-10.5)
[2016-05-14 06:44] LABS: MANUAL DIFF NO %
[2016-05-14 06:55] LABS: ALBUMIN 3.1 G/DL (3.5-5.0); CHLORIDE, SERUM 102 MMOL/L (96-112); CO2 (CARBON DIOXIDE) 20 MMOL/L (24-34); CREATININE 5.15 MG/DL (0.70-1.30); GFR AFRICAN AMERICAN 13 ML/MIN (>=60); GFR NON AFRICAN AMERICAN 11 ML/MIN (>=60); GLUCOSE, SERUM 140 MG/DL (60-99); PHOSPHORUS, SERUM 5.3 MG/DL (2.5-4.5); POTASSIUM, SERUM 4.5 MMOL/L (3.5-5.3); SODIUM, SERUM 139 MMOL/L (135-148)
[2016-05-14 06:56] LABS: BUN (BLOOD UREA NITROGEN) 139 MG/DL (6-23)
[2016-05-14 07:23] LABS: ANISOCYTOSIS 1+ (5-10/OIF) (0-5/OIF); HYPOCHROMIA 1+ (3-10/OIF) (0-2/OIF); PLATELET ESTIMATE ADQ (ADEQUATE)
[2016-05-14 07:24] LABS: GIANT PLATELET OCC
[2016-05-15 07:24] LABS: BASOPHILS 0.2 %; BASOPHILS ABSOLUTE 0.01 10/3/uL (0.0-0.16); EOSINOPHILS 0.3 %; EOSINOPHILS ABSOLUTE 0.02 10/3/uL (0.0-0.53); HEMATOCRIT 30.5 % (40.0-51.0); HEMOGLOBIN 9.3 g/dL (13.6-17.8); IMMATURE GRANULOCYTES 0.3 %; IMMATURE GRANULOCYTES ABSOLUTE 0.02 10/3/uL (0.0-0.11); LYMPHOCYTES ABSOLUTE 0.62 10/3/uL (0.67-4.30); MEAN CORPUS HGB CONC 30.5 g/dL (32.0-36.0); MEAN CORPUSCULAR HEMOGLOB 21.6 pg (26.0-34.0); MEAN CORPUSCULAR VOLUME 70.8 fL (80-100); MEAN PLATELET VOLUME 9.1 fL (9.2-13.0); MONOCYTES 6.6 %; MONOCYTES ABSOLUTE 0.41 10/3/uL (0.21-1.20); NEUTROPHILS 82.6 %; NEUTROPHILS ABSOLUTE 5.11 10/3/uL (2.02-8.40); PLATELET COUNT 157 10/3/uL (150-400); RBC DISTRIBUTION WIDTH 20.9 % (12.0-16.0); RED CELL COUNT 4.31 10/6/uL (4.7-6.1); WHITE BLOOD CELLS 6.2 10/3/uL (4.5-10.5)
[2016-05-15 07:29] LABS: MANUAL DIFF NO %
[2016-05-15 07:37] LABS: ALBUMIN 2.7 G/DL (3.5-5.0); CALCIUM, SERUM 7.6 MG/DL (8.5-10.4); CHLORIDE, SERUM 104 MMOL/L (96-112); CO2 (CARBON DIOXIDE) 21 MMOL/L (24-34); GLUCOSE, SERUM 133 MG/DL (60-99); POTASSIUM, SERUM 3.9 MMOL/L (3.5-5.3); SODIUM, SERUM 141 MMOL/L (135-148)
[2016-05-15 07:40] LABS: BUN (BLOOD UREA NITROGEN) 90 MG/DL (6-23); GFR AFRICAN AMERICAN 18 ML/MIN (>=60); GFR NON AFRICAN AMERICAN 16 ML/MIN (>=60); PHOSPHORUS, SERUM 3.5 MG/DL (2.5-4.5)
[2016-05-15 07:45] LABS: ANISOCYTOSIS 1+ (5-10/OIF) (0-5/OIF); PLATELET ESTIMATE ADQ (ADEQUATE); RBC MORPHOLOGY ABN (NORMAL)
[2016-05-17 12:53] LABS: INTERNATIONAL NORMAL RATI 1.7 UNITS (-); PROTIME (NOT ORD) 19.6 SEC (12.0-14.5)
[2016-05-17 12:54] LABS: PARTIAL THROMBO TIME 35.6 SEC (22.5-37.2)
[2016-05-17 15:28] LABS: BASOPHILS 0.4 %; BASOPHILS ABSOLUTE 0.03 10/3/uL (0.0-0.16); EOSINOPHILS 5.4 %; EOSINOPHILS ABSOLUTE 0.38 10/3/uL (0.0-0.53); HEMATOCRIT 31.4 % (40.0-51.0); HEMOGLOBIN 9.2 g/dL (13.6-17.8); IMMATURE GRANULOCYTES 0.3 %; IMMATURE GRANULOCYTES ABSOLUTE 0.02 10/3/uL (0.0-0.11); LYMPHOCYTES 11.8 %; LYMPHOCYTES ABSOLUTE 0.83 10/3/uL (0.67-4.30); MEAN CORPUS HGB CONC 29.3 g/dL (32.0-36.0); MEAN CORPUSCULAR HEMOGLOB 21.3 pg (26.0-34.0); MEAN CORPUSCULAR VOLUME 72.9 fL (80-100); MEAN PLATELET VOLUME 9.2 fL (9.2-13.0); MONOCYTES 9.2 %; MONOCYTES ABSOLUTE 0.65 10/3/uL (0.21-1.20); NEUTROPHILS 72.9 %; NEUTROPHILS ABSOLUTE 5.12 10/3/uL (2.02-8.40); PLATELET COUNT 141 10/3/uL (150-400); RBC DISTRIBUTION WIDTH 21.1 % (12.0-16.0); RED CELL COUNT 4.31 10/6/uL (4.7-6.1)
[2016-05-17 15:29] LABS: MANUAL DIFF NO %
[2016-05-17 15:40] LABS: ALBUMIN 2.7 G/DL (3.5-5.0); CALCIUM, SERUM 7.7 MG/DL (8.5-10.4); CHLORIDE, SERUM 101 MMOL/L (96-112); CREATININE 4.41 MG/DL (0.70-1.30); GFR AFRICAN AMERICAN 16 ML/MIN (>=60); GFR NON AFRICAN AMERICAN 14 ML/MIN (>=60); PHOSPHORUS, SERUM 3.5 MG/DL (2.5-4.5); POTASSIUM, SERUM 4.1 MMOL/L (3.5-5.3); SODIUM, SERUM 139 MMOL/L (135-148)
[2016-05-17 15:42] LABS: BUN (BLOOD UREA NITROGEN) 73 MG/DL (6-23); CO2 (CARBON DIOXIDE) 26 MMOL/L (24-34); GLUCOSE, SERUM 187 MG/DL (60-99)
[2016-05-17 15:52] LABS: ANISOCYTOSIS 1+ (5-10/OIF) (0-5/OIF); PLATELET ESTIMATE SLT DEC (ADEQUATE)
[2016-05-17 15:53] LABS: OVALOCYTES 1+ (3-10/OIF) (0-2/OIF)
[2016-05-18 04:44] LABS: BASOPHILS 0.7 %; BASOPHILS ABSOLUTE 0.05 10/3/uL (0.0-0.16); EOSINOPHILS 7.3 %; EOSINOPHILS ABSOLUTE 0.51 10/3/uL (0.0-0.53); HEMATOCRIT 32.5 % (40.0-51.0); HEMOGLOBIN 9.4 g/dL (13.6-17.8); IMMATURE GRANULOCYTES 0.3 %; IMMATURE GRANULOCYTES ABSOLUTE 0.02 10/3/uL (0.0-0.11); LYMPHOCYTES 11.4 %; MEAN CORPUS HGB CONC 28.9 g/dL (32.0-36.0); MEAN CORPUSCULAR HEMOGLOB 21.4 pg (26.0-34.0); MEAN PLATELET VOLUME 9.4 fL (9.2-13.0); MONOCYTES 16.1 %; MONOCYTES ABSOLUTE 1.13 10/3/uL (0.21-1.20); NEUTROPHILS 64.2 %; NEUTROPHILS ABSOLUTE 4.49 10/3/uL (2.02-8.40); PLATELET COUNT 144 10/3/uL (150-400); RBC DISTRIBUTION WIDTH 21.1 % (12.0-16.0); RED CELL COUNT 4.39 10/6/uL (4.7-6.1)
[2016-05-18 04:46] LABS: MANUAL DIFF NO %
[2016-05-18 04:52] LABS: ALBUMIN 2.6 G/DL (3.5-5.0); CHLORIDE, SERUM 104 MMOL/L (96-112); CO2 (CARBON DIOXIDE) 25 MMOL/L (24-34); PHOSPHORUS, SERUM 3.5 MG/DL (2.5-4.5); POTASSIUM, SERUM 4.2 MMOL/L (3.5-5.3); SODIUM, SERUM 140 MMOL/L (135-148)
[2016-05-18 04:56] LABS: BUN (BLOOD UREA NITROGEN) 45 MG/DL (6-23); CREATININE 3.88 MG/DL (0.70-1.30); GFR AFRICAN AMERICAN 19 ML/MIN (>=60); GFR NON AFRICAN AMERICAN 16 ML/MIN (>=60); GLUCOSE, SERUM 148 MG/DL (60-99)
[2016-05-18 05:20] LABS: ANISOCYTOSIS 1+ (5-10/OIF) (0-5/OIF); MICROCYTES 1+ (5-10/OIF) (0-5/OIF); PLATELET ESTIMATE SLT DEC (ADEQUATE)
[2016-05-19 04:56] LABS: INTERNATIONAL NORMAL RATI 1.5 UNITS (-); PROTIME (NOT ORD) 17.7 SEC (12.0-14.5)
[2016-05-19 04:57] LABS: HEMATOCRIT 34.6 % (40.0-51.0); HEMOGLOBIN 10.1 g/dL (13.6-17.8); MEAN CORPUS HGB CONC 29.2 g/dL (32.0-36.0); MEAN CORPUSCULAR HEMOGLOB 21.5 pg (26.0-34.0); MEAN CORPUSCULAR VOLUME 73.8 fL (80-100); MEAN PLATELET VOLUME 9.7 fL (9.2-13.0); PLATELET COUNT 157 10/3/uL (150-400); RBC DISTRIBUTION WIDTH 21.3 % (12.0-16.0); RED CELL COUNT 4.69 10/6/uL (4.7-6.1); RETICULOCYTE COUNT 2.6 % (0.5-2.5); RETICULOCYTE COUNT ABSOLUTE 120.5 10/3/uL (20.2-119.8); WHITE BLOOD CELLS 6.3 10/3/uL (4.5-10.5)
[2016-05-19 05:02] LABS: MANUAL DIFF YES %
[2016-05-19 05:03] LABS: % IRON SAT 11 % (20-50); A/G RATIO 0.7 (0.7-1.9); ALBUMIN 2.9 G/DL (3.5-5.0); CALCIUM, SERUM 7.9 MG/DL (8.5-10.4); CHLORIDE, SERUM 101 MMOL/L (96-112); CO2 (CARBON DIOXIDE) 25 MMOL/L (24-34); FERRITIN 65 NG/ML (26-388); GLOBULIN 4.3 G/DL (2.5-4.1); GLUCOSE, SERUM 131 MG/DL (60-99); IRON BINDING CAPACITY 304 MCG/DL (250-450); IRON, SERUM 34 MCG/DL (35-150); PHOSPHORUS, SERUM 4.2 MG/DL (2.5-4.5); POTASSIUM, SERUM 4.2 MMOL/L (3.5-5.3); SGOT(AST) 28 U/L (5-40); SGPT(ALT) 81 U/L (5-65); SODIUM, SERUM 138 MMOL/L (135-148); TOTAL BILIRUBIN 1.8 MG/DL (0-1.2); TOTAL PROTEIN 7.2 G/DL (6.0-8.5)
[2016-05-19 05:04] LABS: ALKALINE PHOSPHATASE 199 U/L (45-117); BUN (BLOOD UREA NITROGEN) 56 MG/DL (6-23); CREATININE 4.72 MG/DL (0.70-1.30); DIRECT BILIRUBIN 0.6 MG/DL (0.0-0.4); GFR AFRICAN AMERICAN 15 ML/MIN (>=60); GFR NON AFRICAN AMERICAN 13 ML/MIN (>=60); INDIRECT BILIRUBIN(NOT ORDER) 1.2 MG/DL (0.1-0.9)
[2016-05-19 05:19] LABS: ANISOCYTOSIS 1+ (5-10/OIF) (0-5/OIF); BASOPHILS 1 %; BASOPHILS ABSOLUTE (CALC) 0.06 10/3/uL (0.0-0.16); EOSINOPHILS 4 %; EOSINOPHILS ABSOLUTE (CALC) 0.25 10/3/uL (0.0-0.53); LYMPHOCYTES 11 %; LYMPHOCYTES ABSOLUTE (CALC) 0.69 10/3/uL (0.67-4.30); MICROCYTES 1+ (5-10/OIF) (0-5/OIF); MONOCYTES 9 %; MONOCYTES ABSOLUTE (CALC) 0.57 10/3/uL (0.21-1.20); NEUTROPHILS ABSOLUTE (CALC) 4.73 10/3/uL (2.02-8.40); PLATELET ESTIMATE ADQ (ADEQUATE); RBC MORPHOLOGY ABN (NORMAL); SEGMENTED NEUTROPHIL (0) 75 %; TOTAL NUCLEATED CELLS 100
[2016-05-20 05:40] LABS: BASOPHILS 0.3 %; BASOPHILS ABSOLUTE 0.02 10/3/uL (0.0-0.16); EOSINOPHILS 4.9 %; EOSINOPHILS ABSOLUTE 0.39 10/3/uL (0.0-0.53); HEMOGLOBIN 8.8 g/dL (13.6-17.8); IMMATURE GRANULOCYTES 0.1 %; IMMATURE GRANULOCYTES ABSOLUTE 0.01 10/3/uL (0.0-0.11); LYMPHOCYTES 9.4 %; LYMPHOCYTES ABSOLUTE 0.74 10/3/uL (0.67-4.30); MEAN CORPUS HGB CONC 29.4 g/dL (32.0-36.0); MEAN CORPUSCULAR HEMOGLOB 21.6 pg (26.0-34.0); MEAN CORPUSCULAR VOLUME 73.5 fL (80-100); MEAN PLATELET VOLUME 9.7 fL (9.2-13.0); MONOCYTES ABSOLUTE 0.63 10/3/uL (0.21-1.20); NEUTROPHILS 77.3 %; NEUTROPHILS ABSOLUTE 6.11 10/3/uL (2.02-8.40); PLATELET COUNT 146 10/3/uL (150-400); RBC DISTRIBUTION WIDTH 21.4 % (12.0-16.0); RED CELL COUNT 4.07 10/6/uL (4.7-6.1); WHITE BLOOD CELLS 7.9 10/3/uL (4.5-10.5)
[2016-05-20 05:47] LABS: HEMATOCRIT 29.9 % (40.0-51.0); MANUAL DIFF NO %
[2016-05-20 05:58] LABS: ALBUMIN 3.1 G/DL (3.5-5.0); CALCIUM, SERUM 7.9 MG/DL (8.5-10.4); CHLORIDE, SERUM 106 MMOL/L (96-112); CO2 (CARBON DIOXIDE) 23 MMOL/L (24-34); GFR AFRICAN AMERICAN 19 ML/MIN (>=60); GFR NON AFRICAN AMERICAN 16 ML/MIN (>=60); GLUCOSE, SERUM 152 MG/DL (60-99); PHOSPHORUS, SERUM 3.4 MG/DL (2.5-4.5); POTASSIUM, SERUM 4.2 MMOL/L (3.5-5.3); SODIUM, SERUM 141 MMOL/L (135-148)
[2016-05-20 05:59] LABS: BUN (BLOOD UREA NITROGEN) 39 MG/DL (6-23); CREATININE 3.84 MG/DL (0.70-1.30)
[2016-05-20 06:49] LABS: ANISOCYTOSIS 1+ (5-10/OIF) (0-5/OIF); MICROCYTES 1+ (5-10/OIF) (0-5/OIF); PLATELET ESTIMATE SLT DEC (ADEQUATE); POLYCHROMASIA 1+ (2-5/OIF) (0-1/OIF); TOXIC GRANULATION 1+
[2016-05-20 10:54] LABS: INTERNATIONAL NORMAL RATI 1.6 UNITS (-); PROTIME (NOT ORD) 19.1 SEC (12.0-14.5)
[2016-05-20 10:55] LABS: PARTIAL THROMBO TIME 35.6 SEC (22.5-37.2)
[2016-05-20 11:01] LABS: ALBUMIN 3.3 G/DL (3.5-5.0)
[2016-05-20] MEDS ORDERED: PRIN2.5 PO (14:46)
[2016-05-20] MEDS ORDERED: CONSTULOSE PO (14:48)
[2016-06-30] MEDS ORDERED: CIP5 PO (13:57)
== END 2016-05-20 16:14 | disposition home health service (06) | DRG 226 ==
LOC: ER 21:19 → 7NO 22:01
PROVIDERS: Emergency Medicine; Internal Medicine; Internal Medicine Cardiovascular Disease; Internal Medicine Nephrology; Nurse Practitioner; Radiology Diagnostic Radiology; Registered Nurse; Student in an Organized Health Care Education/Training Program; Surgery
PROC: 05HM33Z Insertion of Infusion Device into Right Internal Jugular Vein, Percutaneous Approach (ICD-10-PCS; principal; 2016-05-13 14:30)
PROC: 5A1D60Z (ICD-10-PCS; 2016-05-14)
PROC: 0JH608Z Insertion of Defibrillator Generator into Chest Subcutaneous Tissue and Fascia, Open Approach (ICD-10-PCS; 2016-05-19)
PROC: 02HK3KZ Insertion of Defibrillator Lead into Right Ventricle, Percutaneous Approach (ICD-10-PCS; 2016-05-19)
PROC: 02H63KZ Insertion of Defibrillator Lead into Right Atrium, Percutaneous Approach (ICD-10-PCS; 2016-05-19)
DX: I13.0 Hypertensive heart and chronic kidney disease with heart failure and stage 1 through stage 4 chronic kidney disease, or unspecified chronic kidney disease (principal); N18.6 End stage renal disease; N17.9 Acute kidney failure, unspecified; E11.21 Type 2 diabetes mellitus with diabetic nephropathy; I27.2 Other secondary pulmonary hypertension; I50.22 Chronic systolic (congestive) heart failure; N39.0 Urinary tract infection, site not specified; E11.22 Type 2 diabetes mellitus with diabetic chronic kidney disease; Z99.2 Dependence on renal dialysis; D63.1 Anemia in chronic kidney disease; I48.91 Unspecified atrial fibrillation; I25.5 Ischemic cardiomyopathy; I25.10 Atherosclerotic heart disease of native coronary artery without angina pectoris; Z95.1 Presence of aortocoronary bypass graft; G47.33 Obstructive sleep apnea (adult) (pediatric); Z99.81 Dependence on supplemental oxygen; K75.81 Nonalcoholic steatohepatitis (NASH)
CPT/HCPCS: 33249; 36558; 71010; 74176; 76705; 77001; 80053; 80069; 80074; 81001; 82040; 82043; 82140; 82248; 82570; 82728; 82962; 83036; 83540; 83550; 83605; 83690; 83735; 84145; 84155; 84300; 84443; 85025; 85045; 85610; 85730; 87040; 87086; 87389; 87449; 93005; 96374; 96375; 97162-GP; 99291; A9270-GY; C1721; C1750; C1769; C1892; C1895; C1898; G0257; G8978-CK-GP; G8979-CJ-GP; J0690; J1170; J2405; J2550; J2765; J2930; J3010; P9047; Q9966

== ENCOUNTER 2016-07-02 18:42 | Inpatient (IN) | payer MEDICARE, OTHER ==
--- NOTE | ~2016-07-02 | HP ---
History And Physical [facility] [address] [place]. [address] NAME: AGUSTO BUTT : 58 STATUS : ADM IN PAT#: [id number] AGE: 56 ADM/REG DATE : 07/02/16 MR#: [id number] REPORT SERV DATE: 07/02/16 DICTATED BY: AYUSH RAVI DATE: 07/02/16 REPORT STATUS : Draft TRANSCRIBED BY: MODL DATE: 07/02/16 DATE OF ADMISSION: 07/02/2016 REASON FOR ADMISSION: Post intravenous iron anaphylaxis during dialysis. HISTORY OF PRESENT ILLNESS: Mr. Butt is a very pleasant 56-year-old gentleman, who has been previously followed by Dr. Davis Foster for complications of progressive CKD secondary to biopsy-proven IgA nephropathy. Apparently, he has had prior episodes of gross hematuria in the past and recently came to require dialysis in the last six weeks; he currently receives outpatient dialysis at the [facility] with Dr. Dandre Foster. The patient went to dialysis today and received his full treatment and had no unusual circumstance until the last 3 minutes of dialysis, at which time, he was receiving a bolus of intravenous iron. It is not entirely clear whether this was iron gluconate or were there other problems in the past. The patient did report, however, that in previous administrations of iron, he has had a "funny feeling with some degree of dizziness, but never reported that to the nursing staff." The patient subsequently went into what appeared to be a full cardiac arrest. He actually received cardiac compressions in the field, but was quickly aroused upon arrival by EMT, brought to the emergency department at [facility]. Upon arrival, the cardiology staff interrogated the AICD and determined that there was no, in fact, a cardiac arrest. There was no discharge or shocking by the device. The patient quickly was arousable. He has a normal blood pressure. He is sitting quietly on the edge of the bed in no acute distress at this time and clearly appears to be a reaction to the intravenous iron. The patient, however, has some additional problems going on including reports of passing blood clots in his urine. He is known to have a past history of urethral stenosis and also has been experiencing some dysuria upon voiding. The patient will, therefore, be admitted to the hospital for further observation and we will consult Cardiology to interrogate his AICD to look for appropriate functioning and whether some type of adjustment to his threshold is to be made. We will also consult Dr. Jude Beard for placement of left upper extremity AV fistula. He parenthetically was already scheduled to be admitted on Tuesday of next week for the same procedure. We will attempt to try and accelerate that process. Lastly, we will consult Urology to possibly consider a cystoscopy to look for the source of blood clots versus whether this is a residual effect of his known IgA nephropathy. PHYSICAL EXAMINATION: ADMISSION VITAL SIGNS: Blood pressure is 129/52, pulse 114, temperature 97.5, respirations 12, percent saturation 96%. GENERAL: He is sitting on the edge of his bed. Very pleasant. He is accompanied by his . He is in no acute distress. HEENT: Normocephalic, atraumatic. His pupils are equal, round, and reactive to light. He has no scleral icterus or iridocyclitis. He has no inflammatory dermatitis. He has no male pattern baldness. NECK: Supple without meningeal pain in the AP rotational movement. LUNGS: Completely clear to auscultation without rales, rhonchi, or wheezes. There is no pleural friction rub noted. No dullness to percussion. No egophony. A pleural rub is not History And Physical [address] [address] NAME: AGUSTO BUTT : 58 STATUS : ADM IN [facility]#: [id number] AGE: 56 ADM/REG DATE : 07/02/16 MR#: [id number] REPORT SERV DATE: 07/02/16 DICTATED BY: AYUSH RAVI DATE: 07/02/16 REPORT STATUS : Draft TRANSCRIBED BY: MODNoelle DATE: 07/02/16 appreciated. CARDIOVASCULAR: Has a palpable AICD in his anterior chest wall. He has irregularly irregular rhythm and a grade 1/6 systolic ejection murmur. No diastolic murmurs are noted. A pericardial friction rub is not noted. ABDOMEN: He is mildly protuberant, but nonrigid, nontender. He has no bulging flanks to suggest ascites or underlying portal hypertension. EXTREMITIES: Significant for a right IJ PermCath. He has no lower extremity edema. NEUROLOGICAL: He is alert and oriented x3 with a nonfocal sensory motor exam. PAST MEDICAL HISTORY: 1. 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 2. Diabetes mellitus, previously insulin requiring, currently requiring no insulin. 3. Idiopathic dilated cardiomyopathy with ejection fraction of 30%. As noted, previously stable with AICD. 4. Reported nonalcoholic steatohepatitis with cirrhosis, but the patient has very mild elevation of his INR. 5. Past history of obstructive sleep apnea, currently on CPAP. 6. Pulmonary hypertension with right ventricular hypertension. 7. A past history of peptic ulcer disease, cholelithiasis, and diverticulosis. PAST SURGICAL HISTORY: 1. Status post CABG in 2000. 2. Partial foot amputation. 3. Peripheral artery disease. 4. Pseudoaneurysm repair of the right forearm bone graft. LABORATORY DATA: White count 10,900, hemoglobin 10.3, hematocrit of 34.8. MCV was not done. Platelet count of 197,000. Sodium is 140, potassium 3.1, chloride of 102, bicarb of 31, BUN of 19, creatinine 1.94, glucose of 186. PT is 17.5 with INR 1.5, calcium 8.1, magnesium 1.9. PROBLEM LIST AND ASSESSMENT AND PLAN: Newly recognized anaphylactic shock secondary to intravenous iron preparations. The patient apparently has been somewhat sensitized in his previous administrations and experienced a full-blown anaphylactic reaction during this most recent administration. The patient currently has suffered no long-term neurologic consequences from that event. As previously stated, we will have Cardiology evaluate whether there was some component of malfunction of his AICD. We will also ask Urology to evaluate the reported history of gross hematuria. Overall, the patient is stable. He will be dialyzed again on Tuesday. We will ask Dr. Jude Beard to place a new AV fistula on Tuesday or Tuesday of next week. HALINA/NATE Ayush Ravi M.D. History And Physical [address] [address] NAME: AGUSTO BUTT : 58 STATUS : ADM IN [facility]#: [id number] AGE: 56 ADM/REG DATE : 07/02/16 MR#: [id number] REPORT SERV DATE: 07/02/16 DICTATED BY: AYUSH RAVI DATE: 07/02/16 REPORT STATUS : Draft TRANSCRIBED BY: NATE DATE: 07/02/16 / [id number] CC: Estella Mayfield M.D.
--- NOTE | ~2016-07-02 | CN ---
Consultation Report [facility] [address] [place]. [address] NAME: AGUSTO FARAH : 58 STATUS : ADM IN PAT#: [id number] AGE: 56 ADM/REG DATE : 07/02/16 MR#: [id number] REPORT SERV DATE: 07/03/16 DICTATED BY: FRANK FONSECA DATE: 07/03/16 REPORT STATUS : Draft TRANSCRIBED BY: MODL DATE: 07/03/16 CARDIOLOGY CONSULTATION DATE OF CONSULTATION: HISTORY OF PRESENT ILLNESS: The patient is a 56-year-old white male with history of coronary artery bypass surgery [place] [address] Jones. The patient has an AICD and is on dialysis. He is awaiting placement of a graft. Apparently, the patient had a hypotensive reaction after receiving the iron. There was no defibrillator discharge and interrogation of the Med[employer] unit shows normal AICD function with underlying atrial fibrillation. PAST MEDICAL HISTORY: Remarkable for coronary artery disease with prior bypass surgery, AICD implantation, congestive heart failure, chronic renal disease, diabetes, and amputation of part of the left foot due to peripheral vascular disease. RECOMMENDATION: 1. Continue Coreg for rate control. 2. Continue lisinopril for afterload reduction. 3. Consider anticoagulation after placement of the graft. 4. Echocardiogram to re-evaluate left ventricular function. Thank you very much for this consultation. CALDERON/NATE Frank Fonseca M.D., F.A.C.C. / [id number] CC: Estella Mayfield M.D.
--- NOTE | ~2016-07-02 | CN ---
Consultation Report [facility] [address] [place]. [address] NAME: AGUSTO BUTT : 58 STATUS : ADM IN PAT#: [id number] AGE: 56 ADM/REG DATE : 07/02/16 MR#: [id number] REPORT SERV DATE: 07/03/16 DICTATED BY: KIZZY ELLIOTT DATE: 07/03/16 REPORT STATUS : Draft TRANSCRIBED BY: MODL DATE: 07/03/16 INPATIENT CONSULTATION NOTE DATE OF CONSULTATION: 07/03/2016 REASON FOR CONSULTATION: Gross hematuria. HISTORY OF PRESENT ILLNESS: Mr. Butt is a 56-year-old white male, dialysis patient, who was admitted following an anaphylactic reaction secondary to intravenous iron while at dialysis. He is doing much better now. While in the hospital, he complained of a several- week history of gross hematuria with either tissue or clots along with some dysuria. The patient makes approximately 4 ounces of urine per day. He had been previously scheduled to see Dr. Escobar Vargas this upcoming Tuesday to evaluate the gross hematuria. While in the emergency department, urinalysis was infected appearing and was reflexively sent for culture. He was started on Rocephin while the culture is pending. He is feeling much better now. Urology was asked to evaluate the patient. 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 PAST SURGICAL HISTORY: Coronary artery bypass graft in 2000, partial foot amputation, peripheral artery disease, pseudoaneurysm repair of the right forearm bone graft. FAMILY HISTORY: No urologic problems. SOCIAL HISTORY: Does not smoke, drink, or use illicit drugs. HOME MEDICATIONS: Cyanocobalamin, insulin, lisinopril, fish oil, Zantac, sodium bicarbonate, Flomax, temazepam, torsemide. ALLERGIES: FLAGYL, ERYTHROMYCIN, ADHESIVE TAPE, VANCOMYCIN, HYDROCODONE. REVIEW OF SYSTEMS: A thorough 13-point review of systems was performed by me, and if not noted to be positive in the history of present illness or past medical history, negative. PHYSICAL EXAMINATION: GENERAL: Well-appearing gentleman, in no distress. VITAL SIGNS: Temperature 97.5, pulse 87, respirations 18, blood pressure 131/60. HEENT: Normocephalic, atraumatic. Eyes are anicteric. Nares are patent. Oropharynx is clear. NECK: Supple. HEART: Regular rate and rhythm. Consultation Report [place] [id number] [place]. [address] NAME: AGUSTO BUTT : 58 STATUS : ADM IN [facility]#: [id number] AGE: 56 ADM/REG DATE : 07/02/16 MR#: [id number] REPORT SERV DATE: 07/03/16 DICTATED BY: KIZZY ELLIOTT. DATE: 07/03/16 REPORT STATUS : Draft TRANSCRIBED BY: MODL DATE: 07/03/16 ABDOMEN: Soft. Nonpalpable, nontender bladder. No CVA tenderness. MUSCULOSKELETAL: Moves all extremities well. NEUROLOGIC: No focal deficits. PSYCHIATRIC: Pleasant, appropriate. LABORATORY DATA: White blood cell count 7200 today, down from 10,900 on admission. Creatinine 1.94 on admission, although he is a dialysis patient, I would expect this to rise. IMAGING: CT abdomen and pelvis without contrast was ordered by the primary service today. I personally reviewed these images with Dr. Daniel Rhodes in Radiology. This showed a diffusely thickened urinary bladder, worse than 04/2016, although no obvious masses. He did not have any hydronephrosis or kidney stones visible. ASSESSMENT: 1. Gross hematuria. 2. Urinary tract infection. 3. End-stage renal disease. PLAN: Recommend continuing on Rocephin while his urine culture is pending. He may need outpatient cystoscopy based upon the results of the culture. I will alert Dr. Vargas to the patient's presence and we will follow with you. My thanks to Dr. Darden for asking me to participate in Mr. Butt's care. RAC/MODL Kizzy Elliott M.D. / [id number] CC: Estella Mayfield M.D.
[2016-07-02 17:05] LABS: BASOPHILS 0.3 %; BASOPHILS ABSOLUTE 0.03 10/3/uL (0.0-0.16); EOSINOPHILS 8.5 %; EOSINOPHILS ABSOLUTE 0.92 10/3/uL (0.0-0.53); HEMOGLOBIN 10.3 g/dL (13.6-17.8); IMMATURE GRANULOCYTES 0.4 %; IMMATURE GRANULOCYTES ABSOLUTE 0.04 10/3/uL (0.0-0.11); LYMPHOCYTES 6.6 %; LYMPHOCYTES ABSOLUTE 0.72 10/3/uL (0.67-4.30); MEAN CORPUS HGB CONC 29.6 g/dL (32.0-36.0); MEAN CORPUSCULAR HEMOGLOB 23.1 pg (26.0-34.0); MEAN PLATELET VOLUME 8.5 fL (9.2-13.0); MONOCYTES 8.2 %; MONOCYTES ABSOLUTE 0.89 10/3/uL (0.21-1.20); NEUTROPHILS ABSOLUTE 8.27 10/3/uL (2.02-8.40); RED CELL COUNT 4.46 10/6/uL (4.7-6.1); WHITE BLOOD CELLS 10.9 10/3/uL (4.5-10.5)
[2016-07-02 17:07] LABS: HEMATOCRIT 34.8 % (40.0-51.0); MANUAL DIFF NO %; PLATELET COUNT 197 10/3/uL (150-400)
[2016-07-02 17:13] LABS: INTERNATIONAL NORMAL RATI 1.5 UNITS (-); PARTIAL THROMBO TIME 42.1 SEC (22.5-37.2); PROTIME (NOT ORD) 17.5 SEC (12.0-14.5)
[2016-07-02 17:23] LABS: ASCORBIC ACID (UR NOT ORDER) NEG (NEG); BILIRUBIN, URINE NEGATIVE (NEG); ER URINALYSIS TAT 0 Hrs 14 Mins; KETONE, URINE TRACE MG/DL (NEG); LEUKOCYTE ESTERASE(NOT OR MOD (NEG); NITRITE (URINE) NEG (NEG); WBC (NOT ORDERED) (RFLEX) > 182 (0-5)
[2016-07-02 17:23] LABS: CALCIUM, SERUM 8.4 MG/DL (8.5-10.4); CHEST PAIN PROFILE TAT 0 Hrs 24 Mins; CHLORIDE, SERUM 102 MMOL/L (96-112); POTASSIUM, SERUM 3.4 MMOL/L (3.5-5.3); SODIUM, SERUM 140 MMOL/L (135-148); TROPONIN I 0.04 NG/ML (<0.05)
[2016-07-02 17:24] LABS: BUN (BLOOD UREA NITROGEN) 19 MG/DL (6-23); CO2 (CARBON DIOXIDE) 31 MMOL/L (24-34); CREATININE 1.94 MG/DL (0.70-1.30); GFR AFRICAN AMERICAN 43 ML/MIN (>=60); GFR NON AFRICAN AMERICAN 37 ML/MIN (>=60); GLUCOSE, SERUM 186 MG/DL (60-99)
[~2016-07-02 18:42] MED LIST changes: +CONSTULOSE PO; +COREG25 PO; +LINZESS 290 M290 MCG PO; +PRIN2.5 PO
[2016-07-02] MEDS ORDERED: B12250T PO (18:49)
[2016-07-02] MEDS ORDERED: FISH-EPA1000 MG PO (18:50)
[2016-07-02] MEDS ORDERED: NOVOLOG SC (18:50)
[2016-07-02] MEDS ORDERED: PRIN2.5 PO (18:50)
[2016-07-02] MEDS ORDERED: FLOMAX4 PO (18:50)
[2016-07-02] MEDS ORDERED: REST15 PO (18:51)
[2016-07-02] MEDS ORDERED: ZANTAC150 MG PO (18:51)
[2016-07-02] MEDS ORDERED: SODBICAR10 PO (18:51)
[2016-07-02] MEDS ORDERED: DEMA100 PO (18:51)
[2016-07-03 07:04] LABS: BASOPHILS 0.7 %; BASOPHILS ABSOLUTE 0.05 10/3/uL (0.0-0.16); EOSINOPHILS 19.1 %; HEMATOCRIT 36.2 % (40.0-51.0); HEMOGLOBIN 10.8 g/dL (13.6-17.8); IMMATURE GRANULOCYTES 0.3 %; IMMATURE GRANULOCYTES ABSOLUTE 0.02 10/3/uL (0.0-0.11); LYMPHOCYTES ABSOLUTE 0.73 10/3/uL (0.67-4.30); MEAN CORPUS HGB CONC 29.8 g/dL (32.0-36.0); MEAN CORPUSCULAR HEMOGLOB 23.3 pg (26.0-34.0); MEAN CORPUSCULAR VOLUME 78.2 fL (80-100); MEAN PLATELET VOLUME 8.7 fL (9.2-13.0); MONOCYTES 11.6 %; MONOCYTES ABSOLUTE 0.85 10/3/uL (0.21-1.20); NEUTROPHILS 58.3 %; NEUTROPHILS ABSOLUTE 4.28 10/3/uL (2.02-8.40); PLATELET COUNT 220 10/3/uL (150-400); RBC DISTRIBUTION WIDTH 22.1 % (12.0-16.0); RED CELL COUNT 4.63 10/6/uL (4.7-6.1); WHITE BLOOD CELLS 7.3 10/3/uL (4.5-10.5)
[2016-07-03 07:15] LABS: MANUAL DIFF NO %
[2016-07-03 07:20] LABS: CALCIUM, SERUM 8.9 MG/DL (8.5-10.4); CHLORIDE, SERUM 101 MMOL/L (96-112); CREATININE 2.41 MG/DL (0.70-1.30); GFR AFRICAN AMERICAN 33 ML/MIN (>=60); GFR NON AFRICAN AMERICAN 29 ML/MIN (>=60); POTASSIUM, SERUM 3.7 MMOL/L (3.5-5.3); SGOT(AST) 20 U/L (5-40); SGPT(ALT) 11 U/L (5-65); SODIUM, SERUM 137 MMOL/L (135-148); TOTAL PROTEIN 7.2 G/DL (6.0-8.5)
[2016-07-03 07:21] LABS: A/G RATIO 0.6 (0.7-1.9); ALBUMIN 2.6 G/DL (3.5-5.0); ALKALINE PHOSPHATASE 178 U/L (45-117); BUN (BLOOD UREA NITROGEN) 28 MG/DL (6-23); CO2 (CARBON DIOXIDE) 26 MMOL/L (24-34); GLOBULIN 4.6 G/DL (2.5-4.1); GLUCOSE, SERUM 147 MG/DL (60-99); TOTAL BILIRUBIN 0.7 MG/DL (0-1.2)
[2016-07-03 08:04] LABS: HYPOCHROMIA 1+ (3-10/OIF) (0-2/OIF); MICROCYTES 1+ (5-10/OIF) (0-5/OIF); PLATELET ESTIMATE ADQ (ADEQUATE); POLYCHROMASIA 1+ (2-5/OIF) (0-1/OIF); TEARDROP SHAPED RBCS OCC (0-2/OIF)
[2016-07-04 06:13] LABS: BASOPHILS 1.1 %; BASOPHILS ABSOLUTE 0.08 10/3/uL (0.0-0.16); EOSINOPHILS 23.1 %; EOSINOPHILS ABSOLUTE 1.72 10/3/uL (0.0-0.53); HEMATOCRIT 33.5 % (40.0-51.0); HEMOGLOBIN 9.9 g/dL (13.6-17.8); IMMATURE GRANULOCYTES 0.3 %; IMMATURE GRANULOCYTES ABSOLUTE 0.02 10/3/uL (0.0-0.11); LYMPHOCYTES 11.8 %; LYMPHOCYTES ABSOLUTE 0.88 10/3/uL (0.67-4.30); MEAN CORPUS HGB CONC 29.6 g/dL (32.0-36.0); MEAN CORPUSCULAR VOLUME 77.7 fL (80-100); MEAN PLATELET VOLUME 8.9 fL (9.2-13.0); MONOCYTES 11.8 %; MONOCYTES ABSOLUTE 0.88 10/3/uL (0.21-1.20); NEUTROPHILS 51.9 %; NEUTROPHILS ABSOLUTE 3.87 10/3/uL (2.02-8.40); PLATELET COUNT 234 10/3/uL (150-400); RBC DISTRIBUTION WIDTH 22.1 % (12.0-16.0); RED CELL COUNT 4.31 10/6/uL (4.7-6.1); WHITE BLOOD CELLS 7.5 10/3/uL (4.5-10.5)
[2016-07-04 06:14] LABS: MANUAL DIFF NO %
[2016-07-04 06:26] LABS: ALBUMIN 2.6 G/DL (3.5-5.0); CHLORIDE, SERUM 100 MMOL/L (96-112); CO2 (CARBON DIOXIDE) 24 MMOL/L (24-34); POTASSIUM, SERUM 3.9 MMOL/L (3.5-5.3); SODIUM, SERUM 131 MMOL/L (135-148)
[2016-07-04 06:29] LABS: BUN (BLOOD UREA NITROGEN) 39 MG/DL (6-23); CREATININE 3.13 MG/DL (0.70-1.30); GFR AFRICAN AMERICAN 24 ML/MIN (>=60); GFR NON AFRICAN AMERICAN 21 ML/MIN (>=60); GLUCOSE, SERUM 110 MG/DL (60-99); PHOSPHORUS, SERUM 4.9 MG/DL (2.5-4.5)
[2016-07-04 06:32] LABS: INTERNATIONAL NORMAL RATI 1.3 UNITS (-); PROTIME (NOT ORD) 16.3 SEC (12.0-14.5)
[2016-07-04 07:42] LABS: MACROCYTES 1+ (5-10/OIF) (0-5/OIF); MICROCYTES 1+ (5-10/OIF) (0-5/OIF); PLATELET ESTIMATE ADQ (ADEQUATE)
[2016-07-04] MEDS ORDERED: COREG12 PO (10:41)
[2016-07-04] MEDS ORDERED: LEVAQUIN750 MG PO (10:42)
== END 2016-07-04 13:04 | disposition home or self-care (01) | DRG 915 ==
LOC: ER 18:42 → 2SO 20:34
PROVIDERS: Internal Medicine Nephrology; Nurse Practitioner Family; Registered Nurse
DX: T88.6XXA Anaphylactic reaction due to adverse effect of correct drug or medicament properly administered, initial encounter (principal); N18.6 End stage renal disease; I13.2 Hypertensive heart and chronic kidney disease with heart failure and with stage 5 chronic kidney disease, or end stage renal disease; I42.0 Dilated cardiomyopathy; E11.22 Type 2 diabetes mellitus with diabetic chronic kidney disease; I27.2 Other secondary pulmonary hypertension; R55 Syncope and collapse; I48.0 Paroxysmal atrial fibrillation; N39.0 Urinary tract infection, site not specified; N02.8 Recurrent and persistent hematuria with other morphologic changes; I50.22 Chronic systolic (congestive) heart failure; R31.0 Gross hematuria; Z99.2 Dependence on renal dialysis; T45.4X5A Adverse effect of iron and its compounds, initial encounter; K75.81 Nonalcoholic steatohepatitis (NASH); G47.33 Obstructive sleep apnea (adult) (pediatric); K57.90 Diverticulosis of intestine, part unspecified, without perforation or abscess without bleeding; K80.20 Calculus of gallbladder without cholecystitis without obstruction; I25.10 Atherosclerotic heart disease of native coronary artery without angina pectoris; Y92.89 Other specified places as the place of occurrence of the external cause; Z99.81 Dependence on supplemental oxygen; Z87.11 Personal history of peptic ulcer disease; Z89.439 Acquired absence of unspecified foot; Z98.890 Other specified postprocedural states; Z95.1 Presence of aortocoronary bypass graft; Z88.8 Allergy status to other drugs, medicaments and biological substances; Z88.1 Allergy status to other antibiotic agents; Z88.5 Allergy status to narcotic agent; Z95.810 Presence of automatic (implantable) cardiac defibrillator
CPT/HCPCS: 71010; 74176; 80048; 80053; 80069; 81001; 82962; 83690; 83735; 83880; 84484; 85025; 85610; 85730; 87086; 88112; 93005; 93288; 96374; 99285; A9270-GY; C8929; Q9957